=== PATIENT | female | born 2000 | race African-American/Black ===

== ENCOUNTER → 2024-04-03 | Outpatient (CLI) | payer OTHER ==
[~2024-04-03] MED LIST: ISOVUE-370 76% 100ML VIAL As Ordered ONE
== END ==
LOC: M RADPRO 11:24
PROVIDERS: ATTEND Student in an Organized Health Care Education/Training Program
DX: N97.8 Female infertility of other origin (principal)
CPT/HCPCS: 58340; 74740; Q9967